=== PATIENT | male | born 1995 | race Two or more races ===

== ENCOUNTER → 2018-04-27 | Outpatient (CLI) | payer OTHER ==
--- NOTE | 2018-04-27 18:47 | REP ---
CT IAC'S WITHOUT CONTRAST: HISTORY: Right cholesteatoma. The right internal auditory canal, cochlea, vestibule, and semicircular canals are normal in appearance. There is no carotid canal or jugular bulb dehiscence. The ossicles are normal in configuration and position. A small soft tissue density is present in the right middle ear cavity contiguous with and medial to the right tympanic membrane and incus. There is no bone erosion. The scutum and tegmen are intact. The mastoid air cells are clear. The left internal auditory canal, cochlea, vestibule, and semicircular canals are normal in appearance. There is no carotid canal or jugular bulb dehiscence. The ossicles are normal in configuration and position. The scutum and tegmen are intact. The middle ear cavity and mastoid air cells are clear. Minimal mucosal thickening is present in the right maxillary sinus. The nasopharynx is normal in appearance. IMPRESSION: There is a small soft tissue density in the right middle ear cavity contiguous with and medial to the right tympanic membrane and incus. This may represent a small cholesteatoma. Electronically Signed by Juvenal Nixon MD 04/27/2018 07:01 P
== END ==
LOC: M RAD 16:15
PROVIDERS: ATTEND Otolaryngology
DX: H71.11 Cholesteatoma of tympanum, right ear (principal)